=== PATIENT | male | born 2000 | race African-American/Black ===

== ENCOUNTER 2025-06-02 12:16 | Emergency (ER) | payer SELFPAY ==
[~2025-06-02] VITALS: Ht 167.6 cm; Wt 100.0 kg
[2025-06-02 12:28] VITALS: O2SAT 100
[2025-06-02] MEDS ORDERED: DOXY100T2 MT (13:05)
[2025-06-02] MEDS: CEFTRIAXONE SODIUM 500MG VIAL IM ONE (13:58)
[2025-06-02 14:00] VITALS: BP 140/85; PULSE 68; RESP 15; TEMP 37.1; O2SAT 100
== END 2025-06-02 14:49 | disposition home or self-care (01) ==
LOC: ER 12:16
DX: R36.9 Urethral discharge, unspecified (principal); Z79.899 Other long term (current) drug therapy
CPT/HCPCS: 93005; 96372; 99283; J0696; Z7610